=== PATIENT | female | born 2000 | race Caucasian/White ===

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

== ENCOUNTER 2019-02-13 15:59 | Emergency (ER) | payer BC, OTHER ==
[2019-02-13 16:06] VITALS: BP 132/86; PULSE 84; RESP 18; TEMP 98.2
[2019-02-13] MEDS ORDERED: SODIUM CHLORIDE 0.9% 1,000 ML IV STA (16:32)
--- NOTE | 2019-02-13 16:32 | ED ---
Abdominal Pain HPI - General Chief Complaint: Abdominal Pain Stated Complaint: abdominal pain Time Seen by Provider: 02/13/19 16:10 Source: patient Mode of arrival: ambulatory Limitations: no limitations - History of Present Illness Initial Comments: The patient is a 19-year-old female who presents to the emergency department with reported abdominal pain. She reports the pain has been going on for the past month. It is located in the periumbilical region with radiation to her right upper quadrant. She describes it as a cramping sensation with int ermittent sharp shooting pains. It does wax and wane in nature. No history of similar in the past. She admits to associated nausea however no vomiting. Denies any urinary changes to include dysuria, hematuria or difficulty voiding. Denies any abnormal vaginal bleeding or discharge. Her last menstrual cycle was on January 28. She denies concern for or sexually transmitted infections. She admits to constipation however denies diarrhea, melanotic stools or hematochezia. She was at an urgent care last week where they did an abdominal x-ray and found constipation. They told the patient to take milk of mag. She then followed up in her primary care office who scheduled her for a c olonoscopy on the . The patient continues to have pain and therefore came into the emergency room for evaluation. She denies any chest pain, shortness of breath, fevers or chills. She denies any back pain or flank pain. No other alleviating, precipitating or modifying factors - Related Data Home Medications Medication Instructions Recorded Confirmed Sheeba 1 tab PO HS 02/13/19 02/13/19 Allergies Allergy/AdvReac Type Severity Reaction Status Date / Time No Known Allergies Allergy Verified 02/13/19 17:31 Review of Systems ROS Statement: Those systems with pertinent positive or pertinent negative responses have been documented in the HPI. ROS Other: All systems not noted in ROS Statement are negative. Past Medical History Past Medical History: No Reported History History of Any Multi-Drug Resistant Organisms: None Reported Past Surgical History: No Surgical Hx Reported Past Psychological History: No Psychological Hx Reported Smoking Status: Never smoker Past Alcohol Use History: Occasional Past Drug Use History: None Reported General Exam Limitations: no limitations General appearance: alert, in no apparent distress Head exam: Present: atraumatic, normocephalic, normal inspection Eye exam: Present: normal appearance, PERRL, EOMI. Absent: scleral icterus, conjunctival injection, periorbital swelling ENT exam: Present: normal exam, mucous membranes moist Neck exam: Present: normal inspection. Absent: tenderness, meningismus, lymphadenopathy Respiratory exam: Present: normal lung sounds bilaterally. Absent: respiratory distress, wheezes, rales, rhonchi, stridor Cardiovascular Exam: Present: regular rate, normal rhythm, normal heart sounds. Absent: systolic murmur, diastolic murmur, rubs, gallop, clicks GI/Abdominal exam: Present: soft, tenderness (mild RUQ), normal bowel sounds. Absent: distended, guarding, rebound, rigid Extremities exam: Present: normal inspection, full ROM, normal capillary refill. Absent: tenderness, pedal edema, joint swelling, calf tenderness Back exam: Present: normal inspection Neurological exam: Present: alert, oriented X3, CN II-XII intact Psychiatric exam: Present: normal affect, normal mood Skin exam: Present: warm, dry, intact, normal color. Absent: rash Course Vital Signs 02/13/19 16:01 Temperature 98.2 F Pulse Rate 84 Respiratory 18 Rate Blood Pressure 132/86 O2 Sat by Pulse 99 Oximetry Medical Decision Making - Medical Decision Making Upon arrival the patient was placed in room 25. She is hooked up to continuous pulse ox and cardiac monitoring. A thorough history and physical exam was performed. Peripheral IV was established. I did discuss diagnosis, differential and treatment options. I did recommend laboratory studies as well as a CT of the patient's abdomen and pelvis. I also recommended an ultrasound of the gallbladder. The patient did agree to this. I did offer medications for pain control however the patient refused. She is given a liter boluses are 0.9% normal saline. Upon return of the results they are reviewed and I did discuss them with the patient. She does have cystic changes to her right ovary therefore I did recommend a pelvic ultrasound. The patient agreed and imaging was performed. Upon return I did discuss the results with the patient again. I did inform her that she will need a repeat pelvic ultrasound in 3 months. As the patient's gallbladder ultrasound did demonstrate possible biliary sludge she may require HIDA scan. The patient is reporting constipation. Because of this I did provide her with a bottle of mag citrate. She is drink half the bottle and if she does not have a bowel movement after 4 hours to drink the other half. She is to follow-up with her primary care physician. If she has any new or worsening symptoms she should return to the emergency room. The patient was in agreement with the treatment plan and she was discharged home in stable condition - Differential Diagnosis acute abd pain, constipation, biliary colic - Lab Data Result diagrams: 02/13/19 17:09 02/13/19 17:09 Lab Results 02/13/19 02/13/19 02/13/19 Range/Units 16:30 16:30 17:09 WBC 5.9 (3.8-10.6) k/uL RBC 4.66 (3.80-5.40) m/uL Hgb 14.2 (11.4-16.0) gm/dL Hct 43.1 (34.0-46.0) % MCV 92.5 (80.0-100.0) fL MCH 30.5 (25.0-35.0) pg MCHC 33.0 (31.0-37.0) g/dL RDW 12.7 (11.5-15.5) % Plt Count 152 (150-450) k/uL Neutrophils % 67 % Lymphocytes % 26 % Monocytes % 4 % Eosinophils % 1 % Basophils % 0 % Neutrophils # 4.0 (1.3-7.7) k/uL Lymphocytes # 1.5 (1.0-4.8) k/uL Monocytes # 0.3 (0-1.0) k/uL Eosinophils # 0.1 (0-0.7) k/uL Basophils # 0.0 (0-0.2) k/uL PT (9.0-12.0) sec INR (<1.2) Sodium (137-145) mmol/L Potassium (3.5-5.1) mmol/L Chloride (98-107) mmol/L Carbon Dioxide (22-30) mmol/L Anion Gap mmol/L BUN (7-17) mg/dL Creatinine (0.52-1.04) mg/dL Est GFR (CKD-EPI)AfAm (>60 ml/min/1.73 sqM) Est GFR (CKD-EPI)NonAf (>60 ml/min/1.73 sqM) Glucose (74-99) mg/dL Plasma Lactic Acid Karlo (0.7-2.0) mmol/L Calcium (8.4-10.2) mg/dL Total Bilirubin (0.2-1.3) mg/dL AST (14-36) U/L ALT (9-52) U/L Alkaline Phosphatase (38-126) U/L Total Protein (6.3-8.2) g/dL Albumin (3.5-5.0) g/dL Lipase (23-300) U/L Urine Color Yellow Urine Appearance Clear (Clear) Urine pH 6.0 (5.0-8.0) Ur Specific [place] 1.005 (1.001-1.035) Urine Protein Negative (Negative) Urine Glucose (UA) Negative (Negative) Urine Ketones Negative (Negative) Urine Blood Negative (Negative) Urine Nitrite Negative (Negative) Urine Bilirubin Negative (Negative) Urine Urobilinogen <2.0 (<2.0) mg/dL Ur Leukocyte Esterase Negative (Negative) Urine HCG, Qual Not Detected (Not Detectd) 02/13/19 02/13/19 02/13/19 Range/Units 17:09 17:09 17:09 WBC (3.8-10.6) k/uL RBC (3.80-5.40) m/uL Hgb (11.4-16.0) gm/dL Hct (34.0-46.0) % MCV (80.0-100.0) fL MCH (25.0-35.0) pg MCHC (31.0-37.0) g/dL RDW (11.5-15.5) % Plt Count (150-450) k/uL Neutrophils % % Lymphocytes % % Monocytes % % Eosinophils % % Basophils % % Neutrophils # (1.3-7.7) k/uL Lymphocytes # (1.0-4.8) k/uL Monocytes # (0-1.0) k/uL Eosinophils # (0-0.7) k/uL Basophils # (0-0.2) k/uL PT 10.4 (9.0-12.0) sec INR 1.0 (<1.2) Sodium 141 (137-145) mmol/L Potassium 3.9 (3.5-5.1) mmol/L Chloride 109 H (98-107) mmol/L Carbon Dioxide 24 (22-30) mmol/L Anion Gap 8 mmol/L BUN 10 (7-17) mg/dL Creatinine 0.67 (0.52-1.04) mg/dL Est GFR (CKD-EPI)AfAm >90 (>60 ml/min/1.73 sqM) Est GFR (CKD-EPI)NonAf >90 (>60 ml/min/1.73 sqM) Glucose 83 (74-99) mg/dL Plasma Lactic Acid Karlo 0.7 (0.7-2.0) mmol/L Calcium 9.2 (8.4-10.2) mg/dL Total Bilirubin 0.7 (0.2-1.3) mg/dL AST 24 (14-36) U/L ALT 27 (9-52) U/L Alkaline Phosphatase 51 (38-126) U/L Total Protein 6.9 (6.3-8.2) g/dL Albumin 4.0 (3.5-5.0) g/dL Lipase 173 (23-300) U/L Urine Color Urine Appearance (Clear) Urine pH (5.0-8.0) Ur Specific [place] (1.001-1.035) Urine Protein (Negative) Urine Glucose (UA) (Negative) Urine Ketones (Negative) Urine Blood (Negative) Urine Nitrite (Negative) Urine Bilirubin (Negative) Urine Urobilinogen (<2.0) mg/dL Ur Leukocyte Esterase (Negative) Urine HCG, Qual (Not Detectd) Disposition Clinical Impression: Abdominal pain Disposition: HOME SELF-CARE Condition: Stable Instructions (If sedation given, give patient instructions): Abdominal Pain (ED) Additional Instructions: Please follow-up with your primary care physician in 2-4 days. Return to the emergency room for any new or worsening symptoms. Drink half a bottle of mag citrate. If after 4 hours you do not have a bowel movement, drink the other half. I do believe you will need further evaluation to include a HIDA scan. You should have a repeat pelvic ultrasound in 3 months Is patient prescribed a controlled substance at d/c from ED?: No Referrals: None,Stated [Primary Care Provider] - 1-2 days Time of Disposition: 20:07 Decision Date: 02/13/19 Decision Time: 20:06
[2019-02-13 16:50] LABS: Appearance,Urine Clear (Clear); Bilirubin,Urine Negative (Negative); Blood,Urine Negative (Negative); Color,Urine Yellow; Glucose,Urine (UA) Negative (Negative); Ketones,Urine Negative (Negative); Leukocyte Esterase,Urine Negative (Negative); Nitrite,Urine Negative (Negative); Protein,Urine Negative (Negative); Specific Gravity,Urine 1.005 (1.001-1.035); Urobilinogen,Urine <2.0 mg/dL (<2.0)
[2019-02-13 17:24] LABS: Basophils % (A) 0 %; Eosinophils # (A) 0.1 k/uL (0-0.7); Eosinophils % (A) 1 %; HCT 43.1 % (34.0-46.0); HGB 14.2 gm/dL (11.4-16.0); Lymphocytes # (A) 1.5 k/uL (1.0-4.8); Lymphocytes % (A) 26 %; MCH 30.5 pg (25.0-35.0); MCV 92.5 fL (80.0-100.0); Mean Platelet Volume 7.5; Monocytes # (A) 0.3 k/uL (0-1.0); Monocytes % (A) 4 %; Neutrophils % (A) 67 %; Platelet Count 152 k/uL (150-450); RBC 4.66 m/uL (3.80-5.40); RDW 12.7 % (11.5-15.5); WBC 5.9 k/uL (3.8-10.6)
[2019-02-13 17:33] LABS: ALT 27 U/L (9-52); AST 24 U/L (14-36); African American GFR (CKD) >90 (>60 ml/min/1.73 sqM); Alkaline Phosphatase 51 U/L (38-126); Anion Gap 8 mmol/L; Blood Urea Nitrogen 10 mg/dL (7-17); Calcium 9.2 mg/dL (8.4-10.2); Carbon Dioxide 24 mmol/L (22-30); Chloride 109 mmol/L (98-107); Glucose 83 mg/dL (74-99); Potassium 3.9 mmol/L (3.5-5.1); Sodium 141 mmol/L (137-145); Total Bilirubin 0.7 mg/dL (0.2-1.3); Total Protein 6.9 g/dL (6.3-8.2)
[2019-02-13 17:34] LABS: Prothrombin Time 10.4 sec (9.0-12.0)
--- NOTE | 2019-02-13 18:04 | US ---
EXAMINATION TYPE: US gallbladder DATE OF EXAM: 02/13/2019 COMPARISON: NONE CLINICAL HISTORY: Pain. EXAM MEASUREMENTS: Liver Length: 15.7 cm Gallbladder Wall: 0.2 cm CBD: 0.3 cm Right Kidney: 11.6 x 4.5 x 5.2 cm Extensive overlying midline bowel gas. Pancreas: Obscured by bowel gas Liver: wnl, somewhat obscured by overlying bowel Gallbladder: Small amount of biliary sludge question. Evidence for sonographic Graves's sign: No CBD: wnl Right Kidney: wnl IMPRESSION: No sonographic evidence of cholelithiasis nor acute cholecystitis. Small amount of biliar y sludge is questioned. Exam is suboptimal due to overlying bowel gas with suboptimal visualization o f the liver and obscuration of the pancreas.
--- NOTE | 2019-02-13 18:19 | CT ---
EXAMINATION TYPE: CT abdomen pelvis w con DATE OF EXAM: 02/13/2019 HISTORY: Abdominal pain CT DLP: 928.1mGycm Automated Exposure Control for Dose Reduction was Utilized. CONTRAST: CT scan of the abdomen and pelvis is performed with IV Contrast, patient injected with 100 mL of Isov ue 300. COMPARISON: Ultrasound dated 11/13/2016 and 02/13/2019 FINDINGS: LUNG BASES: No significant abnormality is appreciated. LIVER/GB: There is heterogenous and decreased attenuation of the hepatic parenchyma in comparison to that of the spleen related to mild degree hepatic steatosis. Confirm with liver function tests. This limits evaluation for focal hepatic masses. No cholelithiasis. PANCREAS: No significant abnormality is seen. SPLEEN: Spleen is prominent in size although does not meet criteria for splenomegaly in craniocaudal dimension. ADRENALS: No significant abnormality is seen. KIDNEYS: Kidneys enhance symmetrically and excrete symmetrically without hydronephrosis nor focal gabe al mass.. BOWEL: Appendix is air-filled and within normal limits. No dilated large or small bowel. UTERUS/ADNEXA: Right adnexal follicles versus cysts within the ovary. LYMPH NODES: No greater than 1cm abdominal or pelvic lymph nodes are appreciated. OSSEOUS STRUCTURES: Minimal degenerative changes of the spine with multiple Schmorl's nodes. IMPRESSION: 1. No CT evidence of acute appendicitis nor bowel obstruction. No hydronephrosis or evidence of pyelo nephritis. No cholelithiasis. 2. Mild degree hepatic steatosis. 3. Right ovarian follicles or cysts.
--- NOTE | 2019-02-13 19:46 | US ---
EXAMINATION TYPE: US pelvic complete DATE OF EXAM: 02/13/2019 COMPARISON: CT abdomen pelvis of the same date CLINICAL HISTORY: F/u due to CT. Abdominal pain and pelvic pain. TECHNIQUE: Transabdominal (TA). Date of LMP: 01/28/19 EXAM MEASUREMENTS: Uterus: 7.6 x 3.3 x 4.2 cm Endometrial Stripe: 0.4 cm Right Ovary: 3.2 x 1.7 x 1.9 cm Left Ovary: 2.8 x 1.3 x 2.7 cm 1. Uterus: Anteverted wnl 2. Endometrium: wnl 3. Right Ovary: wnl 4. Left Ovary: wnl Spectral, color and waveform doppler imaging shows good arterial and venous flow within the ovaries ; there is no evidence for ovarian torsion. 5. Bilateral Adnexa: wnl 6. Posterior cul-de-sac: wnl IMPRESSION: 1. Multiple follicles are seen of the right ovary, likely physiologic in nature. 2. No sonographic evidence of ovarian torsion bilaterally.
[2019-02-13] MEDS ORDERED: MAGNESIUM CITRATE 296 ML BOTTLE PO ONE (20:04)
== END 2019-02-13 21:14 | disposition home or self-care (01) ==
LOC: EC 15:59
DX: K59.00 Constipation, unspecified (principal); R11.0 Nausea; Z79.3 Long term (current) use of hormonal contraceptives; Z53.29 Procedure and treatment not carried out because of patient's decision for other reasons
CPT/HCPCS: 36415; 80053; 83605; 83690; 85025; 85610; 81003; 81025; 93975; 76856; 76705; 74177; 99284; 96360; 96361; Q9967

== ENCOUNTER → 2019-02-27 | Outpatient (CLI) | payer BC ==
--- NOTE | 2019-02-27 15:21 | NM ---
EXAMINATION TYPE: NM hepatobiliary w EF DATE OF EXAM: 02/27/2019 COMPARISON: Gallbladder ultrasound dated 02/13/2019 HISTORY: Right upper quadrant abdominal pain TECHNIQUE: After the intravenous administration of 4.61 mCi Tc 99m Mebrofenin hepatobiliary scintigra phy is performed. Immediate images post injection. FINDINGS: There is satisfactory initial accumulation of tracer by the liver. The gallbladder is visualized wit hin 8 minutes. The small bowel activity is noted within 32 minutes. At one hour 8 ounces of oral en sure plus is given to mimic CCK and gallbladder ejection fraction is calculated at 57 %, in the dar l range. Therefore there is no scintigraphic evidence of cystic or common bile duct obstruction to s uggest acute cholecystitis or gallbladder dyskinesia. IMPRESSION: No scintigraphic evidence of acute or chronic cholecystitis or biliary dyskinesia.
== END | disposition home or self-care (01) ==
LOC: RADNMMAIN 12:37
PROVIDERS: ATTEND Family Medicine
DX: R10.11 Right upper quadrant pain (principal)
CPT/HCPCS: 78226; A9537

== ENCOUNTER 2019-03-02 10:23 | Day surgery (SDC) | payer BC, OTHER ==
[2019-02-27 09:39] VITALS: BMI 25.7
[~2019-03-02 10:23] MED LIST: LACTATED RINGERS 1,000 ML IV SCH; LIDOCAINE 1% 20 ML VIAL (10MG/ML) FOR IV START INTRADERMA PRN
[2019-03-02 11:06] VITALS: TEMP 98.3
[2019-03-02] MEDS ORDERED: LIDOCAINE 1% INJ 10MG/ML (20 ML MDV) ONE (11:30)
[2019-03-02] MEDS ORDERED: PROPOFOL 10 MG/ML 20 ML VIAL IV ONE (11:30)
--- NOTE | 2019-03-02 11:48 | P.OP ---
Date of Procedure: 03/02/19 Preoperative Diagnosis: Abdominal pain Change in bowel habits Postoperative Diagnosis: Normal colonoscopy Procedure(s) Performed: Colonoscopy Anesthesia: MAC Surgeon: True Arora Pathology: none sent Condition: stable Disposition: PACU Description of Procedure: PROCEDURE: The patient was placed on the endoscopy table in the lateral position. Digital rectal examination was performed which revealed no abnormalities. Flexible colonoscope was then placed in the patient's anus and passed throughout the entire colon. The ileocecal valve was visualized. The cecum, ascending, transverse, descending and sigmoid colon were normal. The rectum was normal as well. There were no masses, polyps or diverticula noted in the entire colon. SUMMARY OF FINDINGS: Normal colonoscopy.
--- NOTE | 2019-03-02 11:50 | P.GSHP ---
History of Present Illness H&P Date: 03/02/19 Chief Complaint: Abdominal pain, change in bowel habits This a 19-year-old female who presents today for colonoscopy. Patient's had issues with change in bowel habits with increasing frequency of bowel movements and abdominal pain. Past Medical History Past Medical History: No Reported History Additional Past Medical History / Comment(s): hx abdominal pain and constipation History of Any Multi-Drug Resistant Organisms: None Reported Past Surgical History: No Surgical Hx Reported Past Anesthesia/Blood Transfusion Reactions: No Reported Reaction Smoking Status: Never smoker Medications and Allergies Home Medications Medication Instructions Recorded Confirmed Type Sheeba 1 tab PO HS 02/13/19 03/02/19 History Allergies Allergy/AdvReac Type Severity Reaction Status Date / Time No Known Allergies Allergy Verified 03/02/19 10:54 Surgical - Exam Vital Signs Temp Pulse Resp BP Pulse Ox 98.3 F 78 15 122/58 96 03/02/19 10:45 03/02/19 10:45 03/02/19 10:45 03/02/19 10:45 03/02/19 10:45 - General well developed, well nourished, no distress - Eyes PERRL - ENT normal pinna - Neck no masses - Respiratory normal expansion - Cardiovascular Rhythm: regular - Abdomen Abdomen: soft, non tender Assessment and Plan Assessment: Change in bowel habits Abdominal pain We'll perform colonoscopy
[2019-03-02 11:53] VITALS: RESP 16
[2019-03-02 12:19] VITALS: BP 116/81; PULSE 56
== END 2019-03-02 12:24 | disposition home or self-care (01) ==
LOC: ORWHC2ENDO 10:23
PROVIDERS: ATTEND Surgery
DX: R10.9 Unspecified abdominal pain (principal); K59.00 Constipation, unspecified; Z79.3 Long term (current) use of hormonal contraceptives
CPT/HCPCS: 81025; 45378; J2001; J2704

== ENCOUNTER 2020-12-31 18:06 | Emergency (ER) | payer BC ==
[2020-12-31 18:10] VITALS: TEMP 99.2
[2020-12-31] MEDS ORDERED: SODIUM CHLORIDE 0.9% 1,000 ML IV STA (18:12)
[2020-12-31] MEDS ORDERED: RX INFO: IV CONTRAST WAS GIVEN 1 EACH MISC MISCELLANE PRN (18:23)
--- NOTE | 2020-12-31 18:27 | ED ---
General Adult HPI - General Chief complaint: Dizziness Stated complaint: vision trouble, dizzy Time Seen by Provider: 12/31/20 18:12 Source: patient Limitations: no limitations - History of Present Illness Initial comments: Dictation was produced using [employer] dictation software. please excuse any grammatical, word or spelling errors. Chief Complaint: 20-year-old female no significant Torsten's presents to the emergency department for headache and vision changes History of Present Illness: Patient 20-year-old female she has a past medical history. She was driving today when she began noticing weird lines in her vision patient states that lasted for only a couple minutes. When away. Shortly after she started having right-sided headache. She has no history of migraines. Patient takes control. Patient states that she has never had anything like this in the past. Patient denies any numbness and paresthesias. States that her headache is not severe. The ROS documented in this emergency department record has been reviewed and confirmed by me. Those systems with pertinent positive or negative responses have been documented in the HPI. All other systems are other negative and/or noncontributory. PHYSICAL EXAM: General Impression: Alert and oriented x3, not in acute distress HEENT: Normocephalic atraumatic, extra-ocular movements intact, pupils equal and reactive to light bilaterally, mucous membranes moist. Cardiovascular: Heart regular rate and rhythm Chest: Able to complete full sentences, no retractions, no tachypnea Abdomen: abdomen soft, non-tender, non-distended, no organomegaly Musculoskeletal: Pulses present and equal in all extremities, no peripheral edema Motor: no focal deficits noted Neurological: CN II-XII grossly intact, no focal motor or sensory deficits noted Skin: Intact with no visualized rashes Psych: Normal affect and mood ED course: 20-year-old female presents with acute headache and vision changes. She does have right-sided headache. No vision changes have resolved on its own.. She denies having a history of headaches. As upon arrival shows temperature 90.2, rest of vital signs within acceptable limits. Laboratory evaluation obtained. CBC, metabolic panel is unremarkable. Patient is not . Coronavirus is negative. CT venogram was obtained and no acute findings. Limited evaluation however of the dural sinuses. Patient reevaluated bedside found to be in stable medical condition. It's unclear what is causing patient's symptoms however patient does not have high-risk features. Patient symptoms have all been for 1 day. very low clinical suspicion for pseudotumor cerebri. Return precautions discussed. Patient will be discharged. - Related Data Home Medications Medication Instructions Recorded Confirmed Sheeba 1 tab PO HS 02/13/19 03/02/19 Allergies Allergy/AdvReac Type Severity Reaction Status Date / Time No Known Allergies Allergy Verified 12/31/20 18:10 Review of Systems ROS Statement: Those systems with pertinent positive or pertinent negative responses have been documented in the HPI. ROS Other: All systems not noted in ROS Statement are negative. Past Medical History Past Medical History: No Reported History Additional Past Medical History / Comment(s): hx abdominal pain and constipation History of Any Multi-Drug Resistant Organisms: None Reported Past Surgical History: No Surgical Hx Reported Past Anesthesia/Blood Transfusion Reactions: No Reported Reaction Past Psychological History: No Psychological Hx Reported Past Alcohol Use History: Occasional Past Drug Use History: None Reported General Exam Limitations: no limitations Course Vital Signs 12/31/20 18:07 Temperature 99.2 F Pulse Rate 73 Respiratory 16 Rate Blood Pressure 122/79 O2 Sat by Pulse 100 Oximetry Medical Decision Making - Lab Data Result diagrams: 12/31/20 18:51 12/31/20 18:51 Lab Results 12/31/20 12/31/20 12/31/20 Range/Units 18:42 18:42 18:51 WBC 5.6 (3.8-10.6) k/uL RBC 4.82 (3.80-5.40) m/uL Hgb 15.4 (11.4-16.0) gm/dL Hct 43.3 (34.0-46.0) % MCV 89.8 (80.0-100.0) fL MCH 31.9 (25.0-35.0) pg MCHC 35.5 (31.0-37.0) g/dL RDW 11.9 (11.5-15.5) % Plt Count 189 (150-450) k/uL MPV 7.3 Neutrophils % 66 % Lymphocytes % 28 % Monocytes % 4 % Eosinophils % 1 % Basophils % 0 % Neutrophils # 3.7 (1.3-7.7) k/uL Lymphocytes # 1.6 (1.0-4.8) k/uL Monocytes # 0.2 (0-1.0) k/uL Eosinophils # 0.1 (0-0.7) k/uL Basophils # 0.0 (0-0.2) k/uL Sodium (137-145) mmol/L Potassium (3.5-5.1) mmol/L Chloride (98-107) mmol/L Carbon Dioxide (22-30) mmol/L Anion Gap mmol/L BUN (7-17) mg/dL Creatinine (0.52-1.04) mg/dL Est GFR (CKD-EPI)AfAm (>60 ml/min/1.73 sqM) Est GFR (CKD-EPI)NonAf (>60 ml/min/1.73 sqM) Glucose (74-99) mg/dL Calcium (8.4-10.2) mg/dL Urine HCG, Qual Not Detected (Not Detectd) Coronavirus (PCR) Not Detected (Not Detectd) 12/31/20 Range/Units 18:51 WBC (3.8-10.6) k/uL RBC (3.80-5.40) m/uL Hgb (11.4-16.0) gm/dL Hct (34.0-46.0) % MCV (80.0-100.0) fL MCH (25.0-35.0) pg MCHC (31.0-37.0) g/dL RDW (11.5-15.5) % Plt Count (150-450) k/uL MPV Neutrophils % % Lymphocytes % % Monocytes % % Eosinophils % % Basophils % % Neutrophils # (1.3-7.7) k/uL Lymphocytes # (1.0-4.8) k/uL Monocytes # (0-1.0) k/uL Eosinophils # (0-0.7) k/uL Basophils # (0-0.2) k/uL Sodium 141 (137-145) mmol/L Potassium 3.9 (3.5-5.1) mmol/L Chloride 107 (98-107) mmol/L Carbon Dioxide 25 (22-30) mmol/L Anion Gap 9 mmol/L BUN 11 (7-17) mg/dL Creatinine 0.74 (0.52-1.04) mg/dL Est GFR (CKD-EPI)AfAm >90 (>60 ml/min/1.73 sqM) Est GFR (CKD-EPI)NonAf >90 (>60 ml/min/1.73 sqM) Glucose 87 (74-99) mg/dL Calcium 9.3 (8.4-10.2) mg/dL Urine HCG, Qual (Not Detectd) Coronavirus (PCR) (Not Detectd) Disposition Clinical Impression: Vision changes, Headache Disposition: HOME SELF-CARE Condition: Fair Instructions (If sedation given, give patient instructions): Blurred Vision (ED) Is patient prescribed a controlled substance at d/c from ED?: No Referrals: Natasha Mac DO [Primary Care Provider] - 1-2 days
[2020-12-31 18:57] LABS: Basophils % (A) 0 %; Eosinophils # (A) 0.1 k/uL (0-0.7); Eosinophils % (A) 1 %; HCT 43.3 % (34.0-46.0); HGB 15.4 gm/dL (11.4-16.0); Lymphocytes # (A) 1.6 k/uL (1.0-4.8); Lymphocytes % (A) 28 %; MCH 31.9 pg (25.0-35.0); MCHC 35.5 g/dL (31.0-37.0); MCV 89.8 fL (80.0-100.0); Mean Platelet Volume 7.3; Monocytes # (A) 0.2 k/uL (0-1.0); Monocytes % (A) 4 %; Neutrophils # (A) 3.7 k/uL (1.3-7.7); Neutrophils % (A) 66 %; Platelet Count 189 k/uL (150-450); RBC 4.82 m/uL (3.80-5.40); RDW 11.9 % (11.5-15.5); WBC 5.6 k/uL (3.8-10.6)
[2020-12-31 19:14] LABS: African American GFR (CKD) >90 (>60 ml/min/1.73 sqM); Anion Gap 9 mmol/L; Blood Urea Nitrogen 11 mg/dL (7-17); Calcium 9.3 mg/dL (8.4-10.2); Carbon Dioxide 25 mmol/L (22-30); Chloride 107 mmol/L (98-107); Glucose 87 mg/dL (74-99); Non-African American GFR(CKD) >90 (>60 ml/min/1.73 sqM); Potassium 3.9 mmol/L (3.5-5.1); Sodium 141 mmol/L (137-145)
--- NOTE | 2020-12-31 19:39 | CT ---
EXAM: CT brain w con CLINICAL HISTORY: Evaluate for dural sinus thrombosis. COMPARISON: None TECHNIQUE: Contiguous axial CT images of the brain was performed with 100 mL Isovue-370 intravenous c ontrast. Coronal and sagittal reformats were generated and reviewed. Automated dose control was used for this exam. FINDINGS: There is no evidence for intracranial hemorrhage, mass effect or midline shift. The white matter is p reserved. Ventricular size and configuration is within normal limits for degree of parenchymal volume. The paranasal sinuses are clear. The mastoid air cells are clear. No significant abnormal enhancement or intracranial lesion seen. No evidence for calvarial fracture. Limited evaluation of the dural sinuses on this nonvenogram or ar throgram study demonstrate no obvious abnormality. IMPRESSION: No significant intracranial abnormality.
[2020-12-31 20:18] VITALS: BP 115/72; PULSE 80; RESP 20
== END 2020-12-31 20:18 | disposition home or self-care (01) ==
LOC: EC 18:06
DX: R51.9 Headache, unspecified (principal); H53.8 Other visual disturbances
CPT/HCPCS: 96360 ×2; 99284 ×2; 36415; 80048; 85025; 81025; 87635; 70460; Q9967

== ENCOUNTER → 2021-05-30 | Outpatient (CLI) | payer BC ==
--- NOTE | 2021-05-30 08:46 | US ---
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 GLAND SIZE: Right Lobe: 4.6 x 1.4 x 1.4 cm Overall Parenchyma: homogenous Left Lobe: 4.5 x 1.1 x 1.4 cm Overall Parenchyma: homogeneous Isthmus Thickness: 0.2 cm NODULES RIGHT: # of nodules measured on right: 0 LEFT: # of nodules measured on left: 0 Bilateral neck scanned, no evidence of lymphadenopathy. IMPRESSION: Normal size homogeneous thyroid without discrete nodule.
== END | disposition home or self-care (01) ==
LOC: RADUSWWP 06:57
PROVIDERS: ATTEND Family Medicine
DX: M26.601 Right temporomandibular joint disorder, unspecified (principal)
CPT/HCPCS: 76536

== ENCOUNTER → 2022-02-07 | Outpatient (CLI) | payer BC ==
--- NOTE | 2022-02-07 15:16 | US ---
EXAMINATION TYPE: US thyroid st tissue head/neck DATE OF EXAM: 02/07/2022 COMPARISON: NONE CLINICAL HISTORY: R07.0 Pain in throat. pain in throat x 1 year GLAND SIZE: Right Lobe: 5.2 x 1.1 x 0.9 cm Overall Parenchyma: homogenous Left Lobe: 4.5 x 1.4 x 1.1 cm Overall Parenchyma: homogeneous Isthmus Thickness: 0.2 cm NODULES RIGHT: # of nodules measured on right: 1 1. 0.3 X 0.2 x 0.2 cm, mid mid, cystic or almost completely cystic, anechoic nodule, which is wider than tall, with smooth margins, without echogenic foci. LEFT: # of nodules measured on left: 0 ISTHMUS: # of nodules measured in the isthmus: 0 Bilateral neck scanned, no evidence of lymphadenopathy. IMPRESSION: 1. Benign findings right lobe thyroid 2017 ACR TI-RADS LEVEL: TR-RADS 1 - BENIGN: No FNA *Highest TI-RADS level nodule reported
== END | disposition home or self-care (01) ==
LOC: RADUSWWP 14:28
PROVIDERS: ATTEND Family Medicine
DX: E04.1 Nontoxic single thyroid nodule (principal)
CPT/HCPCS: 76536